=== PATIENT | female | born 2000 | race Caucasian/White ===

== ENCOUNTER 2018-05-26 12:22 | Emergency (ER) | payer SELFPAY ==
[~2018-05-26] VITALS: Ht 152.4 cm; Wt 54.9 kg
== END 2018-05-26 12:37 | disposition home or self-care (01) ==
LOC: ED 12:22
DX: N75.0 Cyst of Bartholin's gland (principal); R03.0 Elevated blood-pressure reading, without diagnosis of hypertension

== ENCOUNTER 2018-06-03 17:34 | Emergency (ER) | payer SELFPAY ==
[~2018-06-03] VITALS: Ht 152.4 cm; Wt 54.9 kg
== END 2018-06-03 17:58 | disposition home or self-care (01) ==
LOC: ED 17:34
DX: N63.11 Unspecified lump in the right breast, upper outer quadrant (principal)

== ENCOUNTER → 2018-06-22 | Outpatient (CLI) | payer SELFPAY | END | disposition home or self-care (01) | LOC: US 11:44 | DX: N63.11 Unspecified lump in the right breast, upper outer quadrant (principal) ==

== ENCOUNTER → 2018-08-14 | Outpatient (CLI) | payer SELFPAY | END | disposition home or self-care (01) | LOC: US 12:30 | DX: D24.1 Benign neoplasm of right breast (principal) ==

== ENCOUNTER 2019-01-27 14:32 | Emergency (ER) | payer SELFPAY ==
[~2019-01-27] VITALS: Ht 152.4 cm; Wt 54.9 kg
[2019-01-27 15:07] LABS: BILIRUBIN NEGATIVE (NEGATIVE); BLOOD 3+ (NEGATIVE); CLARITY CLOUDY (CLEAR); COLOR YELLOW (YELLOW); GLUCOSE NEGATIVE (NEGATIVE); KETONE NEGATIVE (NEGATIVE); LEUKO ESTERASE TRACE (NEGATIVE); NITRITE NEGATIVE (NEGATIVE); SPECIFIC GRAVITY 1.025 (1.005-1.030)
[2019-01-27] MEDS ORDERED: CIPRO500 MG PO (15:16)
[2019-01-27 15:35] LABS: BACTERIA 2+; MUCOUS 2+; RBC TNTC rbc/hpf (0-2)
[2019-01-27 15:36] LABS: EPITHELIAL CELLS 30-40
== END 2019-01-27 15:09 | disposition home or self-care (01) ==
LOC: ED 14:32
PROVIDERS: Nurse Practitioner Family
DX: N39.0 Urinary tract infection, site not specified (principal)

== ENCOUNTER 2019-04-27 13:11 | Emergency (ER) | payer SELFPAY ==
[~2019-04-27] VITALS: Ht 152.4 cm; Wt 54.4 kg
[~2019-04-27 13:11] MED LIST: CIPRO500 MG PO
[2019-04-27 13:40] LABS: BILIRUBIN NEGATIVE (NEGATIVE); BLOOD NEGATIVE (NEGATIVE); CLARITY SL CLOUDY (CLEAR); COLOR YELLOW (YELLOW); GLUCOSE NEGATIVE (NEGATIVE); KETONE NEGATIVE (NEGATIVE); LEUKO ESTERASE 1+ (NEGATIVE); NITRITE NEGATIVE (NEGATIVE); SPECIFIC GRAVITY 1.025 (1.005-1.030); UROBILINOGEN 0.2 E.U./dl (0.2-1.0)
[2019-04-27 13:49] LABS: BACTERIA 2+; EPITHELIAL CELLS TNTC; WBC 16-20 wbc/hpf (0-5)
[2019-04-27] MEDS ORDERED: SEPTDS PO (14:11)
== END 2019-04-27 14:31 | disposition home or self-care (01) ==
LOC: ED 13:11
PROVIDERS: Physician Assistant
DX: N39.0 Urinary tract infection, site not specified (principal)

== ENCOUNTER → 2020-02-06 | Outpatient (CLI) | payer OTHER ==
[~2020-02-06] MED LIST changes: +SEPTDS PO
[2020-02-06 08:33] LABS: BASO # 0.1 10*3/uL (0.0-0.1); BASO % 0.8 % (0.0-1.0); EOS # 0.1 10*3/uL (0.0-0.4); EOS % 1.8 % (1.0-4.0); HEMATOCRIT 40.4 % (37.0-47.0); LYMPH % 45.5 % (27.0-41.0); MEAN CELL VOLUME 90.6 fl (81.0-99.0); MEAN CORPUSCULAR HGB CONC 33.2 g/dl (33.0-37.0); MEAN PLATELET VOLUME 10.3 fl (9.6-12.3); MONO # 0.6 10*3/uL (0.1-1.0); MONO % 8.9 % (3.0-9.0); NEUT # 2.8 10*3/uL (2.3-7.9); NEUT % 42.8 % (47.0-73.0); PLATELET COUNT AUTOMATED 270 10*3/uL (130-400); RED BLOOD COUNT 4.46 10*6/uL (4.10-5.10); RED CELL DISTRI WIDTH 12.3 % (0-14.5); WHITE BLOOD COUNT 6.6 10*3/uL (4.8-10.8)
[2020-02-06 09:03] LABS: ALBUMIN 3.8 gm/dl (3.1-4.5); ALKALINE PHOSPHATASE 79 U/L (45-117); BUN 17 mg/dl (7-24); CHLORIDE 108 mmol/L (98-107); CREATININE 0.63 mg/dL (0.55-1.02); POTASSIUM 3.9 mmol/L (3.5-5.1); SGOT/AST 26 IU/L (3-35); SGPT/ALT 38 U/L (12-78); SODIUM 139 mmol/L (136-145); TOTAL PROTEIN 7.2 gm/dL (6.4-8.2)
[2020-02-06 09:03] LABS: BILIRUBIN NEGATIVE (NEGATIVE); BLOOD 1+ (NEGATIVE); CLARITY CLEAR (CLEAR); COLOR YELLOW (YELLOW); GLUCOSE NEGATIVE (NEGATIVE); KETONE NEGATIVE (NEGATIVE); LEUKO ESTERASE NEGATIVE (NEGATIVE); NITRITE NEGATIVE (NEGATIVE); UROBILINOGEN 0.2 E.U./dl (0.2-1.0)
[2020-02-06 09:07] LABS: CALCIUM OXALATE CRYSTALS TRACE
== END | disposition home or self-care (01) ==
LOC: US 07:30 → LAB 07:36
PROVIDERS: Urology
DX: N39.0 Urinary tract infection, site not specified (principal); R10.9 Unspecified abdominal pain

== ENCOUNTER → 2020-07-08 | Outpatient (CLI) | payer OTHER | END | disposition home or self-care (01) | LOC: COVID19 16:22 | PROVIDERS: ATTEND Family Medicine | DX: Z20.828 Contact with and (suspected) exposure to other viral communicable diseases (principal) ==

== ENCOUNTER 2022-03-03 16:15 | Emergency (ER) | payer OTHER | END 2022-03-03 17:42 | disposition left against medical advice (07) | LOC: ED 16:15 | DX: F41.9 Anxiety disorder, unspecified (principal); Z53.21 Procedure and treatment not carried out due to patient leaving prior to being seen by health care provider ==

== ENCOUNTER 2024-02-07 13:09 | Emergency (ER) | payer OTHER ==
[~2024-02-07] VITALS: Ht 154.9 cm; Wt 58.1 kg
[2024-02-07] MEDS ORDERED: Acetaminophen/Oxycodone 5 MG/325 MG TABLET PO ONE (14:35)
[2024-02-07] MEDS ORDERED: TRAMADOL HCL50 MG PO (16:54)
== END 2024-02-07 16:57 | disposition home or self-care (01) ==
LOC: ED 13:09
DX: S92.351A Displaced fracture of fifth metatarsal bone, right foot, initial encounter for closed fracture (principal); W10.8XXA Fall (on) (from) other stairs and steps, initial encounter; Y93.89 Activity, other specified; Y92.89 Other specified places as the place of occurrence of the external cause; Y99.8 Other external cause status

== ENCOUNTER 2024-02-13 18:54 | Emergency (ER) | payer OTHER ==
[~2024-02-13] VITALS: Wt 59.0 kg
[~2024-02-13 18:54] MED LIST changes: +TRAMADOL HCL50 MG PO
[2024-02-13] MEDS ORDERED: IBUPROFEN 800 MG TAB PO ONE (19:30)
== END 2024-02-13 21:27 | disposition home or self-care (01) ==
LOC: ED 18:54
DX: S92.351A Displaced fracture of fifth metatarsal bone, right foot, initial encounter for closed fracture (principal); X58.XXXA Exposure to other specified factors, initial encounter; Y93.89 Activity, other specified; Y92.009 Unspecified place in unspecified non-institutional (private) residence as the place of occurrence of the external cause; Y99.8 Other external cause status

== ENCOUNTER 2024-10-25 20:10 | Emergency (ER) | payer OTHER ==
[~2024-10-25] VITALS: Ht 154.9 cm; Wt 59.0 kg
[2024-10-25 20:42] LABS: BILIRUBIN Negative (Negative); BLOOD Negative (Negative); CLARITY Cloudy (Clear); COLOR Yellow (Yellow); GLUCOSE Negative (Negative); KETONE 1+ (Negative); LEUKO ESTERASE Negative (Negative); NITRITE Negative (Negative); PH 6.5 (4.5-8.0); SPECIFIC GRAVITY 1.025 (1.001-1.030)
[2024-10-25 20:46] LABS: BASO # 0.1 10*3/uL (0.0-0.1); BASO % 0.4 % (0.0-1.0); EOS # 0.1 10*3/uL (0.0-0.4); EOS % 0.4 % (1.0-4.0); MEAN CELL VOLUME 88.1 fl (81.0-99.0); MONO % 7.2 % (3.0-9.0); NEUT # 8.8 10*3/uL (2.3-7.9); NEUT % 65.8 % (47.0-73.0); PLATELET COUNT AUTOMATED 335 10*3/uL (130-400); RED BLOOD COUNT 4.54 10*6/uL (4.10-5.10); RED CELL DISTRI WIDTH 13.1 % (0-14.5); WHITE BLOOD COUNT 13.4 10*3/uL (4.8-10.8)
[2024-10-25 20:50] LABS: URINE AMPHETAMINES Negative (1000ng/ml); URINE BARBITURATES Negative (200ng/ml); URINE BENZODIAZEPINES Negative (200ng/ml); URINE CANNABINOIDS (THC) Positive (50ng/ml); URINE COCAINE Negative (300ng/ml); URINE METHADONE Negative (300ng/ml); URINE OPIATES Negative (300ng/ml); URINE PHENCYCLIDINE Negative (25ng/ml)
[2024-10-25 20:51] LABS: RBC 0-2 rbc/hpf (0-2)
[2024-10-25 20:52] LABS: EPITHELIAL CELLS 21-30; FINE GRANULAR CAST 0-2; MUCOUS 2+; WBC 0-2 wbc/hpf (0-5)
[2024-10-25 21:16] LABS: ALKALINE PHOSPHATASE 85 U/L (46-116); BUN 8 mg/dl (9-23); CHLORIDE 107 mmol/L (98-107); POTASSIUM 3.4 mmol/L (3.4-5.1); SGPT/ALT 11 U/L (5-49); TOTAL PROTEIN 7.6 gm/dL (6.0-8.0)
[2024-10-25 21:17] LABS: ETHYL ALCOHOL < 3.0 mg/dl (<3)
== END 2024-10-25 23:53 | disposition home or self-care (01) ==
LOC: ED 20:10
PROVIDERS: Internal Medicine
DX: R56.9 Unspecified convulsions (principal); F17.200 Nicotine dependence, unspecified, uncomplicated; Z88.8 Allergy status to other drugs, medicaments and biological substances; Z79.899 Other long term (current) drug therapy; Y04.2XXA Assault by strike against or bumped into by another person, initial encounter; Y93.89 Activity, other specified; Y92.89 Other specified places as the place of occurrence of the external cause; Y99.8 Other external cause status